=== PATIENT | female | born 1960 | race Caucasian/White ===

== ENCOUNTER → 2016-11-23 | Outpatient (CLI) | payer OTHER | END | disposition home or self-care (01) | LOC: LABWHC1 08:28 | PROVIDERS: ATTEND Orthopaedic Surgery | DX: T84.01 Broken internal joint prosthesis (principal) | CPT/HCPCS: 87070 ==

== ENCOUNTER → 2018-07-03 | Outpatient (CLI) | payer OTHER ==
--- NOTE | 2018-07-03 23:20 | CONS ---
CONSULTATION REASON FOR CONSULTATION: Insomnia. HISTORY OF PRESENT ILLNESS: This is a 57-year-old female patient who is coming to my office for difficulty in falling asleep. She is very anxious. She is very irritable and somewhat panicky. She has history of chronic insomnia and this has been going on and off for the past 10 years and she has utilized medications in the past mainly in the form of Ambien that was given to her through various physicians. She has been off treatment for the past 3 years. She does not take any medications for now. She does not see a psychiatrist. She has a marriage counselor who was working with her and her regarding some marital issues and ultimately her decided not to go to the counselor and she has been doing the counseling alone through [employer]. 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 On today's evaluation she is reporting difficulties in sleep initiation and maintenance. Sometimes takes her more than an hour to fall asleep. Ultimately after falling sleep, she gets up after 3 hours of falling asleep. She is not sure what wakes her up. Unable to reinitiate sleepiness and as such she stays awake throughout the night. These symptoms have been getting worse over the past 2-3 months. Currently she is very nervous fatigued somewhat shaky and jittery and she reports increased stress and cannot think right according to her. At times she goes into crying spells. No feeling of worthlessness. No suicidal or homicidal ideation. At times, she is having attacks exacerbating her chronic anxiety. No history of any snoring. She denies waking up choking or gasping for air. No history of any grinding of the teeth. No sleepwalking. No reported history of restlessness in her lower extremities. She describes herself as unable to concentrate and irritable, startled and jumpy and in addition to that, she has chronic fatigue and headaches and muscle aches and unexplained body aches. She does not get any symptoms of manic disorder. The issue seems to be mostly related to anxiety. PAST MEDICAL HISTORY: His chronic insomnia, chronic anxiety. PAST SURGICAL HISTORY: Includes left hip replacement. Right thumb reconstruction surgery. DRUG ALLERGIES: TO PENICILLIN. MEDICATIONS: None. SOCIAL HISTORY: The patient is an ex smoker. She is an ex alcohol drinker. No history of substance abuse. FAMILY HISTORY: Negative for any sleep breathing disorder. REVIEW OF SYSTEMS: 12-point review of system was done and positive findings are mentioned in history of present illness. No history of head trauma. No history of meningitis. No history of any substance abuse. Her weight is down by around 5 pounds since last evaluation. She does not take any naps during the day. She has occasional panic disorder as mentioned above. No reported chest pain. No sweating. No palpitations. No reported phobias. No claustrophobia at this point in time. No reported nausea or vomiting. No angina. No palpitations. No chest pain. No shortness of breath. PHYSICAL EXAMINATION: BP 115/81, pulse 80, respirations 16, temperature 98.0, saturation 98% on room air. Weight is 168, height is 5 feet 3 inches. BMI 29.0. General appearance: Calm, comfortable in no acute distress. Head is atraumatic, normocephalic. NECK: Supple. There is no JVD. No goiter or neck masses. LUNGS: Clear to auscultation. HEART: Sounds are regular rate and rhythm. Normal S1, S2. No S3. No murmurs. ABDOMEN: Soft, nontender. No organomegaly. EXTREMITIES: No edema and there is no cyanosis or clubbing. SKIN: Negative for any wounds or ulceration. IMPRESSION: 1. Comorbid insomnia , mainly exacerbated by her chronic anxiety. There may be an underlying component of depression. Doubt bipolar disorder. 2. I do not see any underlying intrinsic primary sleep disorder and her insomnia is probably exacerbated by increased anxiety and stress especially with various social stressors and marital difficulties. PLAN: 1. I discussed the findings with the patient. 2. The patient was doing relaxation techniques and meditation. 3. I think at this point in time, it is reasonable to consider treatment knowing that the patient is quite symptomatic from her increased anxiety which resulted in significant insomnia. I am going to start this patient on Zoloft 100 mg p.o. daily regarding anxiety disorder. Meanwhile we will start also on Klonopin 0.5 mg twice a day. I gave her 2 month supply and I asked the patient to implement good exercise and indulge in activities such as jogging or biking to reduce amount of stress. She will obviously need a psychiatric evaluation. I am going to refer her to back to her primary care physician to make this arrangement for a psychiatric evaluation. I gave her 2 month supply. I will be glad to see her yet one more time. Her main issue is anxiety and I would think she would be better handled through a psychiatric office. No need for any further testing at this point in time, I would anticipate improvement in her symptoms with a combination of Zoloft and Klonopin and she was given a 2 month supply for now. MMODL / IJN: [id number] /
== END ==
LOC: SLEEP 15:09
PROVIDERS: ATTEND Internal Medicine Critical Care Medicine
DX: G47.00 Insomnia, unspecified (principal); Z87.891 Personal history of nicotine dependence
CPT/HCPCS: 99211

== ENCOUNTER 2018-12-05 07:24 | Emergency (ER) | payer OTHER ==
[2018-12-05 07:41] VITALS: BP 115/73; PULSE 71; RESP 18; TEMP 97.9
[2018-12-05] MEDS ORDERED: DIAZEPAM 5 MG/ML 2 ML INJ IVP STA (08:09)
--- NOTE | 2018-12-05 08:19 | ED ---
General Adult HPI - General Chief complaint: Fall Stated complaint: Fall Time Seen by Provider: 12/05/18 07:35 Source: patient, RN notes reviewed Mode of arrival: ambulatory Limitations: no limitations - History of Present Illness Initial comments: This a 58-year-old female who comes in complaining of left upper quadrant abdominal pain as well as left rib pain which radiates up to her left shoulder. Patient states it's worse with movement particularly sneezing. Patient states taking a deep breath also increases the pain but not as much as when she sneezes. Patient states 2 weeks ago she fell while climbing out of the pool on a pool ladder and hurt both of her ribs and abdomen at that time but the pain has gotten worse over the last few days and she is concerned about her spleen because the pain under her ribs hurts and radiates to the center of her abdomen. Patient denies any fever chills per patient denies any nausea vomiting. Patient denies any shortness of breath. Patient denies anterior chest pain - Related Data Home Medications Medication Instructions Recorded Confirmed Ione-3 Fatty Acids [Ione-3] 1,000 mg PO DAILY 12/05/18 12/05/18 Previous Rx's Medication Instructions Recorded Ibuprofen [Motrin] 600 mg PO Q6HR PRN #20 tab 12/05/18 Allergies Allergy/AdvReac Type Severity Reaction Status Date / Time Penicillins Allergy Unknown Verified 12/05/18 09:26 Childhood Review of Systems ROS Statement: Those systems with pertinent positive or pertinent negative responses have been documented in the HPI. ROS Other: All systems not noted in ROS Statement are negative. Past Medical History Additional Past Medical History / Comment(s): bhavesh History of Any Multi-Drug Resistant Organisms: None Reported Past Surgical History: Joint Replacement Additional Past Surgical History / Comment(s): hip replacement Past Psychological History: No Psychological Hx Reported Smoking Status: Never smoker Past Alcohol Use History: Rare Past Drug Use History: None Reported General Exam - General Exam Comments Initial Comments: GENERAL: Patient is well-developed and well-nourished. Patient is nontoxic and well- hydrated and is in moderate distress. ENT: Neck is soft and supple. No significant lymphadenopathy is noted. Oropharynx is clear. Moist mucous membranes. Neck has full range of motion without eliciting any pain. EYES: The sclera were anicteric and conjunctiva were pink and moist. Extraocular movements were intact and pupils were equal round and reactive to light. Eyelids were unremarkable. PULMONARY: Unlabored respirations. Good breath sounds bilaterally. No audible rales rhonchi or wheezing was noted. CARDIOVASCULAR: There is a regular rate and rhythm without any murmurs gallops or rubs. Patient has tenderness to the left lateral rib cage. ABDOMEN: Patient has left upper quadrant tenderness. SKIN: Skin is clear with no lesions or rashes and otherwise unremarkable. NEUROLOGIC: Patient is alert and oriented x3. Cranial nerves II through XII are grossly intact. Motor and sensory are also intact. Normal speech, volume and content. Symmetrical smile. MUSCULOSKELETAL: Normal extremities with adequate strength and full range of motion. No lower extremity swelling or edema. No calf tenderness. LYMPHATICS: No significant lymphadenopathy is noted PSYCHIATRIC: Normal psychiatric evaluation. Limitations: no limitations Course Vital Signs 12/05/18 07:37 Temperature 97.9 F Pulse Rate 71 Respiratory 18 Rate Blood Pressure 115/73 O2 Sat by Pulse 98 Oximetry Medical Decision Making - Medical Decision Making Patient's EKG shows normal sinus rhythm at 60 bpm CO interval 280 QRSs 84 QT interval 426 QTC is 452. Patient's EKG shows no ST segment elevation or depression or T wave abnormalities are noted. CT of the chest abdomen pelvis shows a fractured eighth rib on the left. There is no abnormality in the abdomen spleen is intact - Lab Data Result diagrams: 12/05/18 08:29 12/05/18 08:29 Lab Results 12/05/18 12/05/18 Range/Units 08:29 08:29 WBC 5.6 (3.8-10.6) k/uL RBC 4.50 (3.80-5.40) m/uL Hgb 13.6 (11.4-16.0) gm/dL Hct 42.4 (34.0-46.0) % MCV 94.0 (80.0-100.0) fL MCH 30.1 (25.0-35.0) pg MCHC 32.0 (31.0-37.0) g/dL RDW 13.6 (11.5-15.5) % Plt Count 316 (150-450) k/uL Neutrophils % 44 % Lymphocytes % 42 % Monocytes % 6 % Eosinophils % 4 % Basophils % 2 % Neutrophils # 2.4 (1.3-7.7) k/uL Lymphocytes # 2.3 (1.0-4.8) k/uL Monocytes # 0.3 (0-1.0) k/uL Eosinophils # 0.3 (0-0.7) k/uL Basophils # 0.1 (0-0.2) k/uL Sodium 141 (137-145) mmol/L Potassium 4.4 (3.5-5.1) mmol/L Chloride 108 H (98-107) mmol/L Carbon Dioxide 25 (22-30) mmol/L Anion Gap 8 mmol/L BUN 12 (7-17) mg/dL Creatinine 0.77 (0.52-1.04) mg/dL Est GFR (CKD-EPI)AfAm >90 (>60 ml/min/1.73 sqM) Est GFR (CKD-EPI)NonAf 85 (>60 ml/min/1.73 sqM) Glucose 90 (74-99) mg/dL Calcium 9.3 (8.4-10.2) mg/dL Total Bilirubin 0.6 (0.2-1.3) mg/dL AST 27 (14-36) U/L ALT 23 (9-52) U/L Alkaline Phosphatase 70 (38-126) U/L Total Protein 7.6 (6.3-8.2) g/dL Albumin 4.3 (3.5-5.0) g/dL Disposition Clinical Impression: Rib fracture Disposition: HOME SELF-CARE Condition: Good Instructions (If sedation given, give patient instructions): Rib Fracture (ED) Prescriptions: Ibuprofen [Motrin] 600 mg PO Q6HR PRN #20 tab PRN Reason: For pain Is patient prescribed a controlled substance at d/c from ED?: No Referrals: None,Stated [Primary Care Provider] - 1-2 days Time of Disposition: 10:02
[2018-12-05 08:46] LABS: Basophils # (A) 0.1 k/uL (0-0.2); Basophils % (A) 2 %; Eosinophils # (A) 0.3 k/uL (0-0.7); Eosinophils % (A) 4 %; HCT 42.4 % (34.0-46.0); HGB 13.6 gm/dL (11.4-16.0); Lymphocytes # (A) 2.3 k/uL (1.0-4.8); Lymphocytes % (A) 42 %; MCH 30.1 pg (25.0-35.0); Mean Platelet Volume 6.5; Monocytes # (A) 0.3 k/uL (0-1.0); Monocytes % (A) 6 %; Neutrophils # (A) 2.4 k/uL (1.3-7.7); Neutrophils % (A) 44 %; Platelet Count 316 k/uL (150-450); RDW 13.6 % (11.5-15.5); WBC 5.6 k/uL (3.8-10.6)
[2018-12-05 08:55] LABS: ALT 23 U/L (9-52); AST 27 U/L (14-36); African American GFR (CKD) >90 (>60 ml/min/1.73 sqM); Albumin 4.3 g/dL (3.5-5.0); Alkaline Phosphatase 70 U/L (38-126); Anion Gap 8 mmol/L; Blood Urea Nitrogen 12 mg/dL (7-17); Calcium 9.3 mg/dL (8.4-10.2); Carbon Dioxide 25 mmol/L (22-30); Chloride 108 mmol/L (98-107); Glucose 90 mg/dL (74-99); Potassium 4.4 mmol/L (3.5-5.1); Sodium 141 mmol/L (137-145); Total Bilirubin 0.6 mg/dL (0.2-1.3); Total Protein 7.6 g/dL (6.3-8.2)
--- NOTE | 2018-12-05 09:48 | CT ---
EXAMINATION TYPE: CT ChestAbdPelvis w con DATE OF EXAM: 12/05/2018 COMPARISON: Abdomen and pelvis 09/08/2010 HISTORY: 58 year-old female left rib pain after fall TECHNIQUE: Contiguous axial scanning of the chest, abdomen, and pelvis performed with IV Contrast, pa tient injected with 100 mL of Isovue 300. Delayed images through the kidneys were obtained. Coronal/s agittal reconstructions performed. CT DLP: 1024 mGycm Automated exposure control for dose reduction was used. FINDINGS: CHEST: Normal size without pericardial effusion. Aorta normal caliber with conventional branching anatomy. No evidence for aortic dissection. Mildly enlarged caliber to the main right pulmonary artery at 2.7 cm may reflect underlying pulmonary arterial hypertension. Calcified left hilar and subcarinal lymph nodes compatible with prior granulomatous disease. No thora cic lymphadenopathy. Scattered calcified granulomas are present with strandy areas of scarring or atelectasis. 3 mm peripheral right midlung pulmonary nodule axial image 33. On the same image, there is a 4 mm ant erior right midlung pulmonary nodule. Strandy atelectasis inferior lingula. No consolidation or pleur al effusion or pneumothorax. Very subtle cortical irregularity involving the left lateral eighth rib could represent a healing non displaced fracture. ABDOMEN: No focal liver lesion. Mild prominence of the bile duct likely secondary to postcholecystectomy statu s. Portal venous system is patent. Adrenal glands, kidneys, spleen appear within normal limits. Mild prominence to the main pancreatic duct measuring up to 3 mm is stable from 09/08/2010. No dilated small bowel, free fluid, or free air. No mesenteric or retroperitoneal lymphadenopathy. Moderate stool. No pericolonic inflammatory change. Pelvis: Bladder urine distended. Uterus and right ovary are visualized. Left ovary not clearly delineated. No abnormal fluid collection in the pelvis or pelvic lymphadenopathy seen. Some artifact from the patie nt's left hip replacement limits visualization of the pelvis. Bones: Subtle cortical irregularity of the left lateral eighth rib as mentioned above. Left hip total arthro plasty. Degenerative changes right hip. There are moderate degenerative disc disease mid to lower tho racic spine. Hypertrophic facet arthropathy throughout the lumbar spine. IMPRESSION: 1. SUBTLE CORTICAL IRREGULARITY OF THE LEFT LATERAL EIGHTH RIB COULD REPRESENT A SUBTLE NONDISPLACED HEALING RIB FRACTURE. 2. PRIOR GRANULOMATOUS DISEASE AND STRANDY AREAS OF ATELECTASIS IN THE LUNGS. 3. A 4 MM AND 3 MM PULMONARY NODULE ON THE RIGHT KIDNEY REASSESSED IN ONE YEAR TO ENSURE STABILITY. 4. OTHERWISE, NO OTHER ACUTE TRAUMATIC SEQUELA IDENTIFIED IN THE CHEST, ABDOMEN, OR PELVIS.
== END 2018-12-05 10:23 | disposition home or self-care (01) ==
LOC: EC 07:24
DX: S22.32XA Fracture of one rib, left side, initial encounter for closed fracture (principal); Z88.0 Allergy status to penicillin; Z96.649 Presence of unspecified artificial hip joint; W11.XXXA Fall on and from ladder, initial encounter; Y93.11 Activity, swimming; Y92.34 Swimming pool (public) as the place of occurrence of the external cause
CPT/HCPCS: 99284; 96374; 36415; 93005; 80053; 85025; 71260; 74177; J3360; Q9967

== ENCOUNTER → 2020-03-09 | Outpatient (CLI) | payer OTHER | END | disposition home or self-care (01) | LOC: RADMRIMAIN 05:54 | PROVIDERS: ATTEND Nurse Practitioner | DX: Z53.9 Procedure and treatment not carried out, unspecified reason (principal) ==